=== PATIENT | male | born 1950 | race Caucasian/White ===

== ENCOUNTER 2016-07-19 19:41 | Emergency (ER) | payer OTHER ==
[~2016-07-19] VITALS: Ht 180.3 cm; Wt 88.1 kg
[2016-07-19 19:45] VITALS: TEMP 36.6; Ht 180.3 cm; Wt 88.1 kg
[2016-07-19] MEDS ORDERED: ONDANSETRON INJ 2 MG/ML 2 ML VIAL IV STA (19:55)
[2016-07-19] MEDS ORDERED: SODIUM CHLORIDE 0.9% 1000ML 1,000 ML IV STA (19:55)
--- NOTE | 2016-07-19 19:59 | EMERGENCY ROOM VISIT NOTE ---
History Report prepared by Fany: Franklyn Bishop Under the Supervision of: Barby WhitleyO. First contact with patient: 19:49 Chief Complaint: ABDOMINAL PAIN Stated Complaint: ABDOMINAL PAIN/R SIDE BACK PAIN History of Present Illness The patient is a 66 year old male who presents to the Emergency Room with complaints of persistent lower abdominal pain that began two night prior to arrival. The patient describes his lower abdominal pain as a "burning" and notes that it radiates into his lower back. He also notes that his lower abdominal pain has radiated into the epigastric region as well. The patient denies any recent diarrhea or vomiting. Source of History: patient Onset: 2 nights [employer] Position: abdomen (Lower) Quality: burning Timing: other (Persistent) Associated Symptoms: + back pain (Lower ), No diarrhea, No vomiting Review of Systems See HPI for pertinent positives & negatives. A total of 10 systems reviewed and were otherwise negative. Past Medical & Surgical Medical Problems: (1) Hernia (2) History of kidney cancer Family History Cancer Diabetes mellitus Hypertension Social History Smoking Status: Former Smoker Marital Status: single Housing Status: lives alone Occupation Status: retired Current/Historical Medications Scheduled Lisinopril (Zestril), 2.5 MG PO DAILY Loratadine (Claritin), 10 MG PO DAILY Metformin Hcl (Glucophage), 500 MG PO DAILY Omeprazole (Prilosec), 20 MG PO Q3D Tamsulosin Hcl (Flomax), 0.4 MG PO DAILY Scheduled PRN Fluticasone Propionate (Nasal) (Flonase Allergy Relief), 2 SPRAYS APPLE for Nasal Congestion Oxycodone Immediate Rel Tab (Roxicodone Ir), 1-2 TAB PO Q4H PRN for Severe Pain Allergies Coded Allergies: No Known Allergies (Unverified , 07/19/16) Physical Exam Vital Signs Date Time Temp Pulse Resp B/P Pulse Ox O2 Delivery O2 Flow Rate FiO2 07/19/16 22:58 86 18 139/96 95 07/19/16 22:20 81 07/19/16 21:33 76 18 154/75 98 Room Air 07/19/16 20:11 78 18 169/98 100 Room Air 07/19/16 20:01 84 07/19/16 19:45 36.6 92 16 165/97 99 Room Air Physical Exam GENERAL: Patient is awake, alert, and in no acute distress. Patient is resting comfortably and showing no signs of anxiety EYES: The conjunctivae are clear. The pupils are round and reactive. EARS, NOSE, MOUTH AND THROAT: The nose is without any evidence of any deformity. Mucous membranes are moist tongue is midline NECK: The neck is nontender and supple. RESPIRATORY: Normal respiratory effort is noted there is no evidence of wheezing rhonchi or rales CARDIOVASCULAR: Regular rate and rhythm noted there no murmurs rubs or gallops normal S1 normal S2 GASTROINTESTINAL: The abdomen is distended but soft. Bowel sounds are present in all quadrants. Abdomen is tender to the LUQ and RLQ, no guarding or rigidity. MUSCULOSKELETAL/EXTREMITIES: There is no evidence of gross deformity full range of motion is noted in the hips and shoulders SKIN: There is no obvious evidence of any rash. There are no petechiae, pallor or cyanosis noted. NEUROLOGIC: Patient is awake alert and oriented x3. Medical Decision & Procedures ER Provider Diagnostic Interpretation: Radiology results as stated below per my review and radiologist interpretation: CHEST ONE VIEW PORTABLE HISTORY: Generalized abdominal pain. COMPARISON: None. FINDINGS: The lungs are clear. Cardiac silhouette is normal in size. No pleural effusions. No pneumothorax. IMPRESSION: No acute process. Electronically signed by: Jorge Steiner M.D. 07/19/2016 8:19 PM Dictated Date/Time: 07/19/2016 8:18 PM ABDOMEN AND PELVIS CT WITH IV CONTRAST CT DOSE: 450.00 mGy.cm HISTORY: Lower abdominal pain. TECHNIQUE: Multiaxial CT images of the abdomen and pelvis were performed following the use of intravenous contrast. COMPARISON STUDY: None. FINDINGS: The lung bases are clear. There is a slightly expansile groundglass lesion within the medullary cavity of the proximal right femur best seen on image 86. This measures up to 5 cm in length and 3.4 cm in thickness. 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 The liver, gallbladder, spleen, pancreas, right adrenal gland, and right kidney are unremarkable. There is a 17 mm left adrenal gland nodule. Focal defect within the lower pole of the left kidney. There are 2 similar-appearing hypodense lesions within the left kidney measuring 1.6-1.4 cm. These do not clearly represent simple cysts on this study. No retroperitoneal lymphadenopathy. No hydronephrosis. The prostate gland is enlarged. Normal bladder. Abnormal soft tissue adjacent to the distal left external iliac vessels measuring 1.9 x 1.4 cm best seen on image 68. No bowel wall thickening or obstruction. Colonic diverticulosis. Normal appendix. IMPRESSION: 1. No bowel wall thickening or obstruction. 2. Colonic diverticulosis. 3. An indeterminate 17 mm left adrenal gland nodule. 4. Focal defect within the lower pole of the left kidney which may be due to old postoperative change. 5. There are 2 similar-appearing hypodense lesions within the left kidney. These do not clearly represent simple cysts but favor hyperdense cysts. However, follow-up nonemergent dedicated renal CT or MRI is recommended for further evaluation. 6. A 1.9 x 1.4 cm low-density soft tissue nodule adjacent to the left external iliac vessels. This could represent mesh repair of an inguinal hernia. However, a pathologically enlarged lymph node could also have a similar appearance. Clinical recommended. 7. Enlarged prostate. 8. 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 Electronically signed by: Jorge Steiner M.D. 07/19/2016 9:13 PM Dictated Date/Time: 07/19/2016 9:00 PM Laboratory Results 07/19/16 19:58 Red Blood Count 5.10, Mean Corpuscular Volume 92.5, Mean Corpuscular Hemoglobin 33.1, Mean Corpuscular Hemoglobin Concent 35.8, Mean Platelet Volume 10.4, Neutrophils (%) (Auto) 56.7, Lymphocytes (%) (Auto) 26.0, Monocytes (%) (Auto) 9.0, Eosinophils (%) (Auto) 7.9, Basophils (%) (Auto) 0.1, Neutrophils # (Auto) 3.97, Lymphocytes # (Auto) 1.82, Monocytes # (Auto) 0.63, Eosinophils # (Auto) 0.55, Basophils # (Auto) 0.01 07/19/16 19:58 Test 07/19/16 19:58 07/19/16 20:03 07/19/16 20:20 07/19/16 20:30 White Blood Count 7.00 K/uL (4.8-10.8) Red Blood Count 5.10 M/uL (4.7-6.1) Hemoglobin 16.9 g/dL (14.0-18.0) Hematocrit 47.2 % (42-52) Mean Corpuscular Volume 92.5 fL (80-100) Mean Corpuscular Hemoglobin 33.1 pg (25-34) Mean Corpuscular Hemoglobin Concent 35.8 g/dl (32-36) Platelet Count 168 K/uL (130-400) Mean Platelet Volume 10.4 fL (7.4-10.4) Neutrophils (%) (Auto) 56.7 % Lymphocytes (%) (Auto) 26.0 % Monocytes (%) (Auto) 9.0 % Eosinophils (%) (Auto) 7.9 % Basophils (%) (Auto) 0.1 % Neutrophils # (Auto) 3.97 K/uL (1.4-6.5) Lymphocytes # (Auto) 1.82 K/uL (1.2-3.4) Monocytes # (Auto) 0.63 K/uL (0.11-0.59) Eosinophils # (Auto) 0.55 K/uL (0-0.5) Basophils # (Auto) 0.01 K/uL (0-0.2) RDW Standard Deviation 41.5 fL (36.4-46.3) RDW Coefficient of Variation 12.3 % (11.5-14.5) Immature Granulocyte % (Auto) 0.3 % Immature Granulocyte # (Auto) 0.02 K/uL (0.00-0.02) Prothrombin Time 11.3 SECONDS (9.0-12.0) Prothromb Time International Ratio 1.1 (0.9-1.1) Activated Partial Thromboplast Time 26.3 SECONDS (21.0-31.0) Partial Thromboplastin Ratio 1.0 Est Creatinine Clear Calc Drug Dose 84.5 ml/min Estimated GFR () 98.9 Estimated GFR (Non- 85.3 BUN/Creatinine Ratio 14.3 (10-20) Calcium Level 8.7 mg/dl (8.5-10.1) Total Bilirubin 0.9 mg/dl (0.2-1) Direct Bilirubin 0.2 mg/dl (0-0.2) Aspartate Amino Transf (AST/SGOT) 15 U/L (15-37) Alanine Aminotransferase (ALT/SGPT) 29 U/L (12-78) Alkaline Phosphatase 87 U/L (45-117) Total Creatine Kinase 56 U/L (39-308) Creatine Kinase MB < 0.5 ng/ml (0.5-3.6) Creatine Kinase MB Ratio (0-3.0) Troponin I < 0.015 ng/ml (0-0.045) Total Protein 7.8 gm/dl (6.4-8.2) Albumin 4.2 gm/dl (3.4-5.0) Lipase 182 U/L (73-393) Bedside Hemoglobin 16.7 g/dl (14.0-18.0) Bedside Hematocrit 49 % (42-52) Bedside Sodium 140 mEq/L (135-144) Bedside Potassium 3.7 mEq/L (3.3-5.0) Bedside Chloride 98 mEq/L (101-112) Bedside Total CO2 27 mEq/l (24-31) Anion Gap 20.0 mmol/L (16-25) Bedside Blood Urea Nitrogen 14 mg/dl (7-18) Bedside Creatinine 0.9 mg/dl (0.6-1.3) Bedside Glucose (other) 114 mg/dl (70-99) Bedside Ionized Calcium ([place]) 1.10 mmol/l (1.12-1.32) Urine Color YELLOW Urine Appearance CLEAR (CLEAR) Urine pH 6.5 (4.5-7.5) Urine Specific [place] 1.006 (1.000-1.030) Urine Protein NEG (NEG) Urine Glucose (UA) NEG (NEG) Urine Ketones TRACE (NEG) Urine Occult Blood NEG (NEG) Urine Nitrite NEG (NEG) Urine Bilirubin NEG (NEG) Urine Urobilinogen NEG (NEG) Urine Leukocyte Esterase NEG (NEG) Bedside Lactic Acid Venous 1.04 mmol/L (0.90-1.70) Laboratory results per my review. Medications Administered Medications (Trade) Dose Ordered Sig/Radha Route Start Time Stop Time Status Last Admin Dose Admin Sodium Chloride (Nss 1000ml) 1,000 ml @ 999 mls/hr Q1H1M STAT IV 07/19/16 19:55 07/19/16 20:55 DC 07/19/16 19:59 999 MLS/HR Morphine Sulfate (MoRPHine SULFATE INJ) 4 mg Q15M PRN IV 07/19/16 20:00 07/19/16 23:52 DC 07/19/16 20:13 4 MG Ondansetron HCl (Zofran Inj) 4 mg NOW STAT IV 07/19/16 19:55 07/19/16 19:57 DC 07/19/16 20:13 4 MG Ondansetron HCl (ZOFRAN ODT 4MG Home Pack) 1 homepack UD ONCE PO 07/19/16 22:15 07/19/16 22:16 DC 07/19/16 22:35 1 HOMEPACK Oxycodone HCl (Roxicodone Immediate Rel 5MG Home Pack) 1 homepack UD ONCE PO 07/19/16 22:15 07/19/16 22:16 DC 07/19/16 22:35 1 HOMEPACK Tamsulosin HCl (Flomax Cap) 0.4 mg NOW ONCE PO 07/19/16 22:15 07/19/16 22:16 DC 07/19/16 22:35 0.4 MG ECG Indication: abdominal pain Rate (beats per minute): 79 Findings: no acute ischemic change, no ectopy Comparison ECG Date: no prior available ED Course 1949: The patient was evaluated in room B2. A complete history and physical examination were performed. 1954: Ordered Zofran 4 mg IV, Sodium Chloride 1000 mL @ 999 mL/hr IV. 1999: Ordered Morphine Sulfate 4 mg IV. 2214: Ordered Flomax 0.4 mg PO, Oxycodone HCl 1 homepack PO, Zofran 1 homepack PO. 2228: Upon reevaluation, the patient is resting in bed. I discussed the results and treatment plan with him. He verbalized agreement of the treatment plan. The patient was discharged home. Medical Decision The patient's history was concerning for abdominal pain. Differential diagnosis: Etiologies such as appendicitis, diverticulitis, PUD, biliary pathology, UTI, pancreatitis, obstruction, mesenteric ischemia, aortic pathology, infections, inflammatory bowel disease, renal colic, as well as others were entertained. The patient is a 66-year-old male who has a history of renal cancer in the past presented to the emergency department for evaluation of abdominal pain. The patient's physical exam was not consistent with an acute surgical abdomen but he did have very significant tenderness and given his past medical history CAT scan the abdomen and pelvis was obtained. He is also scheduled for a CT the abdomen and pelvis this week with his primary oncology group. The patient treated with IV fluids IV pain medicine and IV antiemetics. On subsequent reevaluation he was feeling much better. I discussed the patient's laboratory and radiographic studies with him. I read the CT report to him directly and he was given a copy of his CT report. Most of these findings are likely not new but I asked him to have this CAT scan compared to his previous CAT scans with his primary oncology group. He was encouraged to drink plenty clear liquids and rest. He was also encouraged to call his primary care physician in the morning to schedule a follow-up appointment. Otherwise she was encouraged to return to the emergency department immediately if symptoms change worsen or the need arises. Impression Primary Impression: Right lower quadrant abdominal pain Scribe Attestation The scribe's documentation has been prepared under my direction and personally reviewed by me in its entirety. I confirm that the note above accurately reflects all work, treatment, procedures, and medical decision making performed by me. Departure Information Dispostion Home / Self-Care Prescriptions Tamsulosin Hcl (FLOMAX) 0.4 Mg Cap 0.4 MG PO DAILY, #30 CAP Prov: Hadley Ferrell, DO 07/19/16 Oxycodone Immediate Rel Tab (ROXICODONE IR) 5 Mg Tab 1-2 TAB PO Q4H Y for Severe Pain, #24 TAB Prov: Hadley Ferrell, 07/19/16 Referrals Shiv Lopes MD (PCP) Forms HOME CARE DOCUMENTATION FORM, IMPORTANT VISIT INFORMATION Patient Instructions My [facility] Additional Instructions Family to schedule a follow-up appointment. Continue all medications as prescribed. Follow-up with your primary cancer doctor this week for reevaluation. Return to the emergency department immediately if symptoms change worsen or the need arises.
[2016-07-19] MEDS ORDERED: MoRPHine SULFATE 4 MG/ML 1 ML CARP\\VIAL IV PRN (20:00)
[2016-07-19 20:12] LABS: BASO % 0.1 %; BASO ABS # 0.01 K/uL (0-0.2); COMPLETE YES; EOS % 7.9 %; HEMATOCRIT 47.2 % (42-52); IG% 0.3 %; LYMPH ABS # 1.82 K/uL (1.2-3.4); MEAN CELL VOLUME 92.5 fL (80-100); MEAN CORPUSCULAR HEMOGLOBIN 33.1 pg (25-34); MEAN CORPUSCULAR HGB CONC 35.8 g/dl (32-36); MEAN PLATELET VOLUME 10.4 fL (7.4-10.4); NEUT % 56.7 %; PLATELET COUNT 168 K/uL (130-400)
[2016-07-19] MEDS ORDERED: OPTIRAY 320 IV PRN (20:15)
--- NOTE | 2016-07-19 20:20 | DIAGNOSTIC IMAGING REPORT ---
CHEST ONE VIEW PORTABLE HISTORY: Generalized abdominal pain. COMPARISON: None. FINDINGS: The lungs are clear. Cardiac silhouette is normal in size. No pleural effusions. No pneumothorax. IMPRESSION: No acute process. Electronically signed by: Jorge Steiner M.D. 07/19/2016 8:19 PM Dictated Date/Time: 07/19/2016 8:18 PM
[2016-07-19 20:29] LABS: ALT/SGPT 29 U/L (12-78); AST/SGOT 15 U/L (15-37); BLOOD UREA NITROGEN 13 mg/dl (7-18); BUN/CREATININE RATIO 14.3 (10-20); CALCIUM 8.7 mg/dl (8.5-10.1); CARBON DIOXIDE 30 mmol/L (21-32); CHLORIDE 102 mmol/L (98-107); CREATININE 0.94 mg/dl (0.60-1.40); GLUCOSE 110 mg/dl (70-99); POTASSIUM 3.7 mmol/L (3.5-5.1); SODIUM 138 mmol/L (136-145)
[2016-07-19] MEDS ORDERED: PRLSR20 PO (20:34)
[2016-07-19] MEDS ORDERED: LISI-729 PO (20:34)
[2016-07-19] MEDS ORDERED: GLC/500 PO (20:34)
[2016-07-19] MEDS ORDERED: CLR10 PO (20:34)
[2016-07-19] MEDS ORDERED: FLUT0.15 NAE (20:35)
[2016-07-19 20:37] LABS: ALKALINE PHOSPHATASE 87 U/L (45-117)
[2016-07-19 20:45] LABS: ISTAT CREATININE 0.9 mg/dl (0.6-1.3); ISTAT HEMOGLOBIN 16.7 g/dl (14.0-18.0); ISTAT IONIZED CALCIUM 1.1 mmol/l (1.12-1.32)
[2016-07-19 20:47] LABS: URINE APPEARANCE CLEAR (CLEAR); URINE BILIRUBIN NEG (NEG); URINE COLOR YELLOW; URINE NITRITE NEG (NEG); URINE PH 6.5 (4.5-7.5); URINE SPECIFIC GRAVITY 1.006 (1.000-1.030); UROBILINOGEN NEG (NEG)
[2016-07-19 20:54] LABS: MANUAL MICROSCOPIC REQUIRED? NO; REVIEW REQ? NO
[2016-07-19 21:02] LABS: INR 1.1 (0.9-1.1); PROTHROMBIN TIME (PATIENT) 11.3 SECONDS (9.0-12.0)
--- NOTE | 2016-07-19 21:14 | DIAGNOSTIC IMAGING REPORT ---
ABDOMEN AND PELVIS CT WITH IV CONTRAST CT DOSE: 450.00 mGy.cm HISTORY: Lower abdominal pain. TECHNIQUE: Multiaxial CT images of the abdomen and pelvis were performed following the use of intravenous contrast. COMPARISON STUDY: None. FINDINGS: The lung bases are clear. There is a slightly expansile groundglass lesion within the medullary cavity of the proximal right femur best seen on image 86. This measures up to 5 cm in length and 3.4 cm in thickness. 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 The liver, gallbladder, spleen, pancreas, right adrenal gland, and right kidney are unremarkable. There is a 17 mm left adrenal gland nodule. Focal defect within the lower pole of the left kidney. There are 2 similar-appearing hypodense lesions within the left kidney measuring 1.6-1.4 cm. These do not clearly represent simple cysts on this study. No retroperitoneal lymphadenopathy. No hydronephrosis. The prostate gland is enlarged. Normal bladder. Abnormal soft tissue adjacent to the distal left external iliac vessels measuring 1.9 x 1.4 cm best seen on image 68. No bowel wall thickening or obstruction. Colonic diverticulosis. Normal appendix. IMPRESSION: 1. No bowel wall thickening or obstruction. 2. Colonic diverticulosis. 3. An indeterminate 17 mm left adrenal gland nodule. 4. Focal defect within the lower pole of the left kidney which may be due to old postoperative change. 5. There are 2 similar-appearing hypodense lesions within the left kidney. These do not clearly represent simple cysts but favor hyperdense cysts. However, follow-up nonemergent dedicated renal CT or MRI is recommended for further evaluation. 6. A 1.9 x 1.4 cm low-density soft tissue nodule adjacent to the left external iliac vessels. This could represent mesh repair of an inguinal hernia. However, a pathologically enlarged lymph node could also have a similar appearance. Clinical recommended. 7. Enlarged prostate. 8. 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 Electronically signed by: Jorge Steiner M.D. 07/19/2016 9:13 PM Dictated Date/Time: 07/19/2016 9:00 PM
[2016-07-19] MEDS ORDERED: ONDANSETRON HOME PACK 4MG OD TAB PO ONE (22:15)
[2016-07-19] MEDS ORDERED: TAMSULOSIN HCL 0.4 MG CAP PO ONE (22:15)
[2016-07-19] MEDS ORDERED: OXYCODONE IR HOME PACK PO ONE (22:15)
[2016-07-19] MEDS ORDERED: OXYC1TAB3 PO (22:30)
[2016-07-19] MEDS ORDERED: TAMS0.4C38 PO (22:35)
[2016-07-19 22:58] VITALS: BP 139/96; PULSE 86; O2SAT 95
== END 2016-07-19 23:00 | disposition home or self-care (01) ==
LOC: C.EDB 19:43
DX: R10.31 Right lower quadrant pain (principal); M54.9 Dorsalgia, unspecified; Z85.528 Personal history of other malignant neoplasm of kidney; Z87.891 Personal history of nicotine dependence; Z79.84 Long term (current) use of oral hypoglycemic drugs; Z83.3 Family history of diabetes mellitus; Z82.49 Family history of ischemic heart disease and other diseases of the circulatory system

== ENCOUNTER 2023-08-18 16:34 | Observation (INO) ==
[2023-08-18 17:31] LABS: Basophils # (auto) 0.04 K/uL (0.00-0.20); Basophils % (auto) 0.6 %; Eosinophils # (auto) 0.36 K/uL (0.00-0.50); Eosinophils % (auto) 5.6 %; Hematocrit (blood only) 42.9 % (42.0-52.0); Hemoglobin 14.8 g/dl (14.0-18.0); Immature Granulocytes # (auto) 0.02 K/uL (0.01-0.20); Immature Granulocytes % (auto) 0.3 %; Lymphocytes # (auto) 1.12 K/uL (1.20-3.40); Lymphocytes % (auto) 17.5 %; Mean Corpuscular Hemoglobin 31.6 pg (25.0-34.0); Mean Corpuscular Hgb Conc 34.5 g/dL (32.0-36.0); Mean Corpuscular Volume 91.7 fL (80.0-100.0); Mean Platelet Volume 10.2 fL (9.4-12.4); Monocytes # (auto) 0.37 K/uL (0.11-0.59); Monocytes % (auto) 5.8 %; Neutrophils % (auto) 70.2 %; Platelet Count 151 K/uL (130-400); RDW Coefficient of Variation 12.2 % (11.5-14.5); RDW Standard Deviation 41.2 fL (36.4-46.3); Red Blood Count 4.68 M/uL (4.70-6.10); White Blood Count 6.41 K/ul (4.8-10.8)
[2023-08-18 17:47] LABS: Albumin Globulin Ratio 1.6 (0.9-2); Albumin Level 4.4 gm/dl (3.4-5.0); BUN Creatinine Ratio 19.1 (10-20); Bilirubin,Total 0.8 mg/dl (0.2-1.0); Calcium 9.2 mg/dl (8.6-10.3); Creatinine Clr Calc Pharmacy 76.8 ml/min; Est GFR (African American) 94.2 ml/min; Est GFR (Non-African American) 81.2 ml/min; Globulin 2.7 gm/dl (2.5-4.0); Magnesium 2.1 mg/dl (1.7-2.4); Potassium 3.9 mmol/L (3.5-5.1); Total Protein 7.1 gm/dl (6.0-8.3)
--- NOTE | 2023-08-18 17:47 | Emergency Department Note ---
Impression & Plan Stroke-like symptoms ED Provider Note NAME: BARRIE NESBITT AGE: 73 SEX: M : 1950 ARRIVES VIA: Walk-In INFORMANT: Patient, ED PROVIDER(S): Tamara Rodriguez MD CHIEF COMPLAINT: Concern for TIA HPI: This is a 73-year-old male presenting for concern for TIA. Patient states that he had an episode lasted between 2 and 5 minutes at around 12:45 PM today where he began feeling headache his left eye was blurred, "dizzy "sensation in his eyeball only. He does not feel vertiginous. He notes he had no vision loss. He notes his eyeball felt like it was not working "rotating ". He does not use any blood thinners. No fevers, chills, nausea or vomiting. This never happened before. He saw his inbound customer service agent who did a full eye exam and found no acute abnormalities. She states that he should come to the ER for TIA rule out based on his symptoms. ROS: See above HPI for pertinent positives & negatives. A total of 10 systems reviewed and were otherwise negative. PHYSICAL EXAMINATION: General: resting comfortably in no acute distress Head: Normocephalic and atraumatic Eyes: Normal inspection, extraocular muscles intact Ear, nose, throat: Normal external exam Neck: Normal range of motion Respiratory: lungs clear to auscultation bilaterally Cardiovascular: Regular rate/rhythm, no murmur GI: soft, nontender, no guarding or rebound Extremities: nontender, moves all extremities Neuro: The patient awake and alert, appropriately conversive, no focal deficits, symmetric faces, cranial nerves II through XII intact, no motor dysfunction, no dysmetria, gross vision intact Skin: Warm, dry, and intact MEDICAL DECISION MAKING: This is a 73-year-old male presenting for blurred vision. Patient had episodes of blurry vision for about 2 to 5 minutes. Notes complete resolution of symptoms. Had his eyes inspected and sent here for further TIA rule out. He has no chest pain, fever, chills, nausea or vomiting. Will do CTs of the head as well as blood work. -Blood work is reviewed showing no severe abnormalities. INR within normal limits. There is no significant electrolyte disturbances. Troponin negative. -CT of the head/neck are both negative -Patient has no current symptoms, however due to suspicion of TIA based on outpatient referral, will admit for further evaluation. Differential diagnosis: Stroke, TIA, retinal attachment, vitreous detachment, vitreous hemorrhage, vertigo ER treatment provided: See below Diagnostics interpreted by me: ECG: None Cardiac Monitoring: An order was placed for continuous cardiac monitoring. The monitor shows a rate of 80 with sinus rhythm. Laboratory studies: As stated above and show below. Imaging studies: See below. Past Med/Surg History Problem List (Updated 08/18/23 @ 22:16 by Tamara Rodriguez MD) Stroke-like symptoms (Acute) Benign localized prostatic hyperplasia with lower urinary tract symptoms (LUTS) Renal cell carcinoma Encounter for pre-operative examination Medical History Arthritis BPH (benign prostatic hyperplasia) Diabetes mellitus, type 2 GERD (gastroesophageal reflux disease) History of kidney cancer SURGERY ONLY Hyperlipidemia Hypertension Ocular migraine Seasonal asthma HAS NOT USED INHALER RECENLTY Surgical History H/O foot surgery RT X 2 H/O partial nephrectomy LAP H/O wisdom tooth extraction History of hernia surgery X 3 History of right cataract extraction Family History Other No family history of adverse response to anesthesia Social History Smoking Status: Never smoker Second Hand Exposure: Yes (in the past--work exposure); Do You Dip or Chew Tobacco: No; Hx Alcohol Use: Yes Alcohol type: hard liquor Hx Substance Use: No Preferred Language: Maori Communication Ability: Effective Children'S Tutor Required: No Beliefs That Will Affect Care: None Current Living Situation: Alone Feels Safe at Home: Yes Assistive Devices: Contacts and Glasses Allergies Allergies Allergy/AdvReac Type Severity Reaction Status Date / Time house dust AdvReac Mild sinusitis, Verified 04/27/23 11:49 sob pollen extracts AdvReac Mild sinusitis, Verified 04/27/23 11:49 sob Home Meds Home Medications Medication Instructions Recorded Confirmed atorvastatin 10 mg tablet 10 mg PO HS 06/18/20 04/27/23 calcium carb 333 mg-vit D3 133 2 tab PO DAILY 06/18/20 04/27/23 unit-mag ox 133 mg-zinc oxide 5 mg tab (Bandar Mag Zinc Plus D3) cyanocobalamin (vitamin B-12) 1,000 mcg PO DAILY 06/18/20 04/27/23 1,000 mcg tablet (Vitamin B-12) fluticasone propionate 110 2 puff inhalation BID PRN 06/18/20 12/31/21 mcg/actuation HFA aerosol inhaler Shortness Of Breath Or Wheezing (Flovent HFA) metformin 500 mg tablet,extended 1,000 mg PO QPM 06/18/20 04/27/23 release 24 hr omeprazole 20 mg capsule,delayed 20 mg PO Q2D 06/18/20 04/27/23 release lisinopril 5 mg tablet 5 mg PO QPM 11/14/21 04/27/23 loratadine 10 mg tablet (Claritin) 10 mg PO DAILY PRN ALLERGY RELIEF 11/14/21 04/27/23 Previous Rx's Medication Instructions Recorded alfuzosin 10 mg tablet,extended 10 mg PO DAILY #90 tabs 05/06/23 release 24 hr finasteride 5 mg tablet 5 mg PO DAILY #30 tabs 06/22/23 sulfamethoxazole 800 1 tab PO BID 10 days #20 tabs 06/28/23 mg-trimethoprim 160 mg tablet (Bactrim DS) Results & Data (ED) Vital Signs Vital Signs - 24 hr 08/18/23 16:39 08/18/23 16:52 08/18/23 16:53 Temperature 36.5 C Temperature Source Temporal Artery Scan Pulse Rate 83 79 Pulse Rate [Apical] 80 Respiratory Rate 19 17 Respiratory Effort / Characteristics Respiratory Depth Blood Pressure 147/82 H Blood Pressure [Right Arm] 157/86 H Blood Pressure Mean 103 Blood Pressure Mean [Right Arm] 109 Pulse Oximetry 97 99 Oxygen Delivery Method Room Air Sepsis Recent Fever Within 48 Hours No Sepsis New/Unexplained Change in Mental Status N/A Sepsis Action Taken by Nursing No Action Required 08/18/23 17:12 08/18/23 17:43 08/18/23 17:51 Temperature Temperature Source Pulse Rate 91 H 77 Pulse Rate [Apical] 79 Respiratory Rate 22 21 18 Respiratory Effort / Characteristics Non-Labored Spontaneous Respiratory Depth Normal Blood Pressure Blood Pressure [Right Arm] 154/83 H Blood Pressure Mean Blood Pressure Mean [Right Arm] 106 Pulse Oximetry 97 97 98 Oxygen Delivery Method Room Air Room Air Room Air Sepsis Recent Fever Within 48 Hours Sepsis New/Unexplained Change in Mental Status Sepsis Action Taken by Nursing 08/18/23 19:07 Temperature Temperature Source Pulse Rate Pulse Rate [Apical] 80 Respiratory Rate Respiratory Effort / Characteristics Respiratory Depth Blood Pressure Blood Pressure [Right Arm] 152/86 H Blood Pressure Mean Blood Pressure Mean [Right Arm] 108 Pulse Oximetry 99 Oxygen Delivery Method Room Air Sepsis Recent Fever Within 48 Hours Sepsis New/Unexplained Change in Mental Status Sepsis Action Taken by Nursing Laboratory Data 08/18/23 16:58 08/18/23 16:58 Lab Results 08/18/23 Range/Units 16:58 WBC 6.41 (4.8-10.8) K/ul RBC 4.68 L (4.70-6.10) M/uL Hgb 14.8 (14.0-18.0) g/dl Hct 42.9 (42.0-52.0) % MCV 91.7 (80.0-100.0) fL MCH 31.6 (25.0-34.0) pg MCHC 34.5 (32.0-36.0) g/dL RDW Std Deviation 41.2 (36.4-46.3) fL RDW Coeff of Lauren 12.2 (11.5-14.5) % Plt Count 151 (130-400) K/uL MPV 10.2 (9.4-12.4) fL Immature Gran % (Auto) 0.3 % Neut % (Auto) 70.2 % Lymph % (Auto) 17.5 % [place] % (Auto) 5.8 % Eos % (Auto) 5.6 % Baso % (Auto) 0.6 % Neut # (Auto) 4.50 (1.40-6.50) K/uL Lymph # (Auto) 1.12 L (1.20-3.40) K/uL [place] # (Auto) 0.37 (0.11-0.59) K/uL Eos # (Auto) 0.36 (0.00-0.50) K/uL Baso # (Auto) 0.04 (0.00-0.20) K/uL Immature Gran # (Auto) 0.02 (0.01-0.20) K/uL PT 11.1 (9.0-12.0) Seconds INR 1.0 (0.9-1.1) APTT 26 (21-31) Seconds PTT Ratio 1.0 Sodium 139 (136-145) mmol/L Potassium 3.9 (3.5-5.1) mmol/L Chloride 104 (98-107) mmol/L Carbon Dioxide 30 (21-32) mmol/L Anion Gap 5 (3-11) BUN 18 (6-23) mg/dl Creatinine 0.94 (0.6-1.4) mg/dl Est Cr Clr Drug Dosing 76.8 ml/min Est GFR ( Amer) 94.2 ml/min Est GFR (Non-Af Amer) 81.2 ml/min BUN/Creatinine Ratio 19.1 (10-20) Glucose 153 H (70-99(Fasting)) mg/dl Calcium 9.2 (8.6-10.3) mg/dl Magnesium 2.1 (1.7-2.4) mg/dl Total Bilirubin 0.8 (0.2-1.0) mg/dl AST 16 (13-39) U/L ALT 15 (7-52) U/L Alkaline Phosphatase 67 (34-104) U/L Troponin I High Sens 3.5 (0-20) pg/ml Total Protein 7.1 (6.0-8.3) gm/dl Albumin 4.4 (3.4-5.0) gm/dl Globulin 2.7 (2.5-4.0) gm/dl Albumin/Globulin Ratio 1.6 (0.9-2) Administered Medications Discontinued Medications Aspirin (Aspirin Chew 324 Mg) 324 mg PO NOW STA Stop: 08/18/23 20:41 Last Admin: 08/18/23 20:46 Dose: 324 mg Documented By: ZOLTAN Ioversol (Optiray 320 125ml) 119 ml IV ONCE ONE Stop: 08/18/23 18:31 Last Admin: 08/18/23 18:30 Dose: 119 ml Documented By: NICA Imaging Data Radiologist's Impression: Head CT 08/18/23 17:14 CT angio neck with con, CT angio head w con, CT head/brain wo con CLINICAL HISTORY: neuro deficit, TIA suspected TECHNIQUE: Contiguous axial CT images of the head were acquired from the base of the skull to the vertex without intravenous contrast administration. CT angiography of the head and neck was performed following intravenous administration of iodinated contrast. Coronal and sagittal MIPS were obtained from the axial data set and were submitted for review. Automated dose lowering techniques and/or adjustment according to patient size were utilized for this examination. All measurements were calculated based on NASCET criteria. CT DOSE: 1113.69 mGy.cm Comparison: None available at the time of this dictation. FINDINGS: CT head: There is no acute intracranial hemorrhage or evidence of acute territorial infarction. No shift of the midline structures, mass effect, or extra-axial abnormalities are shown. Lungs and soft tissues are unremarkable. CTA Neck: The left common carotid artery shares common origin with the innominate artery. There is no significant atherosclerotic plaque in the aortic arch or the origins of the innominate, left common carotid, and left subclavian arteries. There is mild calcified atherosclerotic plaque at the bifurcation of the bilateral common carotid arteries without hemodynamically significant flow stenosis. There is no dissection present. The left vertebral artery is dominant. CTA Head: The anterior and posterior cerebral circulations are patent. No hemodynamically significant stenosis, aneurysm, dissection, or arteriovenous malformation is shown. IMPRESSION: 1. No acute intracranial hemorrhage, evidence of acute territorial infarction, or other acute intracranial disease process. 2. No occlusion, hemodynamically significant stenosis, or dissection in the major cervical arteries. 3. No occlusion, hemodynamically significant stenosis, aneurysm, dissection, or arteriovenous malformation in the major intracranial arteries. Assessment of stenosis of the internal carotid arteries is based on NASCET criteria. ACT 112: Negative or not required by law. Electronically signed by: Pierce Katz M.D. 08/18/2023 6:53 PM Head CTA 08/18/23 17:14 CT angio neck with con, CT angio head w con, CT head/brain wo con CLINICAL HISTORY: neuro deficit, TIA suspected TECHNIQUE: Contiguous axial CT images of the head were acquired from the base of the skull to the vertex without intravenous contrast administration. CT angiography of the head and neck was performed following intravenous administration of iodinated contrast. Coronal and sagittal MIPS were obtained from the axial data set and were submitted for review. Automated dose lowering techniques and/or adjustment according to patient size were utilized for this examination. All measurements were calculated based on NASCET criteria. CT DOSE: 1113.69 mGy.cm Comparison: None available at the time of this dictation. FINDINGS: CT head: There is no acute intracranial hemorrhage or evidence of acute territorial infarction. No shift of the midline structures, mass effect, or extra-axial abnormalities are shown. Lungs and soft tissues are unremarkable. CTA Neck: The left common carotid artery shares common origin with the innominate artery. There is no significant atherosclerotic plaque in the aortic arch or the origins of the innominate, left common carotid, and left subclavian arteries. There is mild calcified atherosclerotic plaque at the bifurcation of the bilateral common carotid arteries without hemodynamically significant flow stenosis. There is no dissection present. The left vertebral artery is dominant. CTA Head: The anterior and posterior cerebral circulations are patent. No hemodynamically significant stenosis, aneurysm, dissection, or arteriovenous malformation is shown. IMPRESSION: 1. No acute intracranial hemorrhage, evidence of acute territorial infarction, or other acute intracranial disease process. 2. No occlusion, hemodynamically significant stenosis, or dissection in the major cervical arteries. 3. No occlusion, hemodynamically significant stenosis, aneurysm, dissection, or arteriovenous malformation in the major intracranial arteries. Assessment of stenosis of the internal carotid arteries is based on NASCET criteria. ACT 112: Negative or not required by law. Electronically signed by: Pierce Katz M.D. 08/18/2023 6:53 PM Neck CTA 08/18/23 17:14 CT angio neck with con, CT angio head w con, CT head/brain wo con CLINICAL HISTORY: neuro deficit, TIA suspected TECHNIQUE: Contiguous axial CT images of the head were acquired from the base of the skull to the vertex without intravenous contrast administration. CT angiography of the head and neck was performed following intravenous administration of iodinated contrast. Coronal and sagittal MIPS were obtained from the axial data set and were submitted for review. Automated dose lowering techniques and/or adjustment according to patient size were utilized for this examination. All measurements were calculated based on NASCET criteria. CT DOSE: 1113.69 mGy.cm Comparison: None available at the time of this dictation. FINDINGS: CT head: There is no acute intracranial hemorrhage or evidence of acute territorial infarction. No shift of the midline structures, mass effect, or extra-axial abnormalities are shown. Lungs and soft tissues are unremarkable. CTA Neck: The left common carotid artery shares common origin with the innominate artery. There is no significant atherosclerotic plaque in the aortic arch or the origins of the innominate, left common carotid, and left subclavian arteries. There is mild calcified atherosclerotic plaque at the bifurcation of the bilateral common carotid arteries without hemodynamically significant flow stenosis. There is no dissection present. The left vertebral artery is dominant. CTA Head: The anterior and posterior cerebral circulations are patent. No hemodynamically significant stenosis, aneurysm, dissection, or arteriovenous malformation is shown. IMPRESSION: 1. No acute intracranial hemorrhage, evidence of acute territorial infarction, or other acute intracranial disease process. 2. No occlusion, hemodynamically significant stenosis, or dissection in the major cervical arteries. 3. No occlusion, hemodynamically significant stenosis, aneurysm, dissection, or arteriovenous malformation in the major intracranial arteries. Assessment of stenosis of the internal carotid arteries is based on NASCET criteria. ACT 112: Negative or not required by law. Electronically signed by: Pierce Katz M.D. 08/18/2023 6:53 PM Brain MRI 08/18/23 20:12 MR brain wo con CLINICAL HISTORY: stroke like symptoms TECHNIQUE: Multiplanar and multisequence MR images of the brain were obtained without intravenous contrast. Comparison: Comparison is made to CTA head and neck 08/18/2023 FINDINGS: No abnormal restricted diffusion is identified. Foci of T2 and FLAIR hyperintensity are noted in the paraventricular areas consistent with chronic small vessel ischemic disease. The ventricular system is normal in appearance. No mass is seen. There is no mass effect or midline shift. There is no evidence of acute intraparenchymal hemorrhage. No extra axial fluid collections are seen. The corpus callosum, pituitary gland, and cerebellar tonsils appear grossly unremarkable. Flow voids of the major intracranial arterial vessels are identified. The imaged portions of the paranasal sinuses, mastoid air cells, and orbits are unremarkable. IMPRESSION: No acute abnormality and in particular no evidence of acute infarct. ACT 112: Negative or not required by law. Electronically signed by: Pierce Katz M.D. 08/18/2023 9:21 PM Discharge Plan Visit Data Chief Complaint: Referred by Doctor Stated Complaint: STROKE IN LT EYE ED Provider: Tamara Rodriguez Discharge Problem: Stroke-like symptoms Patient Disposition: Admitted As Inpatient Discharge Instructions Interventions: ED Discharge Assessment Last Done: 08/18/23 21:04
[2023-08-18 17:53] LABS: Troponin I High Sensitivity 3.5 pg/ml (0-20)
[2023-08-18 17:57] LABS: Partial Thromboplastin Time 26 Seconds (21-31); Prothrombin Time 11.1 Seconds (9.0-12.0)
[2023-08-18] MEDS: OPTIRAY 320 125ml IV ONE (18:30)
--- NOTE | 2023-08-18 18:55 | CT Scan Report ---
CT angio neck with con, CT angio head w con, CT head/brain wo con CLINICAL HISTORY: neuro deficit, TIA suspected TECHNIQUE: Contiguous axial CT images of the head were acquired from the base of the skull to the [place] without intravenous contrast administration. CT angiography of the head and neck was performed f ollowing intravenous administration of iodinated contrast. Coronal and sagittal MIPS were obtained fr om the axial data set and were submitted for review. Automated dose lowering techniques and/or adjus tment according to patient size were utilized for this examination. All measurements were calculated based on NASCET criteria. CT DOSE: 1113.69 mGy.cm Comparison: None available at the time of this dictation. FINDINGS: CT head: There is no acute intracranial hemorrhage or evidence of acute territorial infarction. No sh ift of the midline structures, mass effect, or extra-axial abnormalities are shown. Lungs and soft tissues are unremarkable. CTA Neck: The left common carotid artery shares common origin with the innominate artery. There is n o significant atherosclerotic plaque in the aortic arch or the origins of the innominate, left common carotid, and left subclavian arteries. There is mild calcified atherosclerotic plaque at the bifurc ation of the bilateral common carotid arteries without hemodynamically significant flow stenosis. The re is no dissection present. The left vertebral artery is dominant. CTA Head: The anterior and posterior cerebral circulations are patent. No hemodynamically significan t stenosis, aneurysm, dissection, or arteriovenous malformation is shown. IMPRESSION: 1. No acute intracranial hemorrhage, evidence of acute territorial infarction, or other acute intrac ranial disease process. 2. No occlusion, hemodynamically significant stenosis, or dissection in the major cervical arteries. 3. No occlusion, hemodynamically significant stenosis, aneurysm, dissection, or arteriovenous malfor mation in the major intracranial arteries. Assessment of stenosis of the internal carotid arteries is based on NASCET criteria. ACT 112: Negative or not required by law. Electronically signed by: Pierce Katz M.D. 08/18/2023 6:53 PM
--- NOTE | 2023-08-18 19:37 | History & Physical Report ---
Date of Service August 18, 2023 Assessment & Plan (1) Stroke-like symptoms: Plan: Patient presented with transient stroke like symptoms. CTA Head and Neck without significant stenosis or signs of acute ischemic changes. MRI Brain and ECHO ordered. Patient was not aspirin loaded in the ED. Ordered 324 mg PO stat. AM HbA1c and lipids ordered. Patient on metformin 1000 mg XR nightly and 10 mg atorvastatin. Reportedly had low LDL in the past. Last HbA1c reportedly < 7. Continue statin and metformin. Hold lisinopril to allow for permissive hypertension for about 48 hours. Restart on discharge. f/u MRI - no acute infarct f/u ECHO AM labs - lipids, HbA1c AM ASA 81 mg (2) Benign localized prostatic hyperplasia with lower urinary tract symptoms (LUTS): Plan: No acute urinary retention. Continue home alfuzosin 10 mg XR. (3) Diabetes mellitus, type 2: Plan: Continue home metformin (4) Hyperlipidemia: Plan: Continue home statin (5) Hypertension: Plan: Hold lisinopril as above. Plan Code status: full DVT ppx: SCDs, ambulation, ASA load FENGI: Heart Healthy Dispo: Tele unit History of Present Illness Primary Care Provider: Clarissa Fuentes Allergies Allergy/AdvReac Type Severity Reaction Status Date / Time house dust AdvReac Mild sinusitis, Verified 04/27/23 11:49 sob pollen extracts AdvReac Mild sinusitis, Verified 04/27/23 11:49 sob Home Medications Medication Instructions Recorded Confirmed Type atorvastatin 10 mg tablet 10 mg PO HS 06/18/20 04/27/23 History calcium carb 333 mg-vit D3 133 2 tab PO DAILY 06/18/20 04/27/23 History unit-mag ox 133 mg-zinc oxide 5 mg tab (Bandar Mag Zinc Plus D3) cyanocobalamin (vitamin B-12) 1,000 mcg PO DAILY 06/18/20 04/27/23 History 1,000 mcg tablet (Vitamin B-12) fluticasone propionate 110 2 puff inhalation BID PRN 06/18/20 12/31/21 History mcg/actuation HFA aerosol inhaler Shortness Of Breath Or Wheezing (Flovent HFA) metformin 500 mg tablet,extended 1,000 mg PO QPM 06/18/20 04/27/23 History release 24 hr omeprazole 20 mg capsule,delayed 20 mg PO Q2D 06/18/20 04/27/23 History release lisinopril 5 mg tablet 5 mg PO QPM 11/14/21 04/27/23 History loratadine 10 mg tablet (Claritin) 10 mg PO DAILY PRN ALLERGY RELIEF 11/14/21 04/27/23 History alfuzosin 10 mg tablet,extended 10 mg PO DAILY #90 tabs 05/06/23 05/06/23 Rx release 24 hr finasteride 5 mg tablet 5 mg PO DAILY #30 tabs 06/22/23 06/22/23 Rx sulfamethoxazole 800 1 tab PO BID 10 days #20 tabs 06/28/23 Rx mg-trimethoprim 160 mg tablet (Bactrim DS) Past Med/Surg History Problem List (Updated 08/18/23 @ 22:16 by Tamara Rodriguez MD) Stroke-like symptoms (Acute) Benign localized prostatic hyperplasia with lower urinary tract symptoms (LUTS) Renal cell carcinoma Encounter for pre-operative examination Medical History Arthritis BPH (benign prostatic hyperplasia) Diabetes mellitus, type 2 GERD (gastroesophageal reflux disease) History of kidney cancer SURGERY ONLY Hyperlipidemia Hypertension Ocular migraine Seasonal asthma HAS NOT USED INHALER RECENLTY Surgical History H/O foot surgery RT X 2 H/O partial nephrectomy LAP H/O wisdom tooth extraction History of hernia surgery X 3 History of right cataract extraction Family History Other No family history of adverse response to anesthesia Social History Smoking Status: Former smoker Second Hand Exposure: No; Do You Dip or Chew Tobacco: No; Tobacco Cessation Education Requested by Patient: No Hx Alcohol Use: Yes Alcohol type: other Hx Substance Use: No Preferred Language: Peruvian Communication Ability: Effective Stock Manager Required: No Beliefs That Will Affect Care: None Current Living Situation: Alone Other Information That Helps Us Care for You: No Feels Safe at Home: Yes Safety Concerns: Feels Safe At This Time Assistive Devices: None Results & Data Results & Data Vital Signs (Past 12 Hours) Vital Signs Temp Pulse Pulse Resp BP BP Pulse Ox 08/18/23 19:07 80 152/86 H 99 08/18/23 17:51 77 18 98 08/18/23 17:43 79 21 154/83 H 97 08/18/23 17:12 91 H 22 97 08/18/23 16:53 79 08/18/23 16:52 80 17 157/86 H 99 08/18/23 16:39 36.5 C 83 19 147/82 H 97 O2 Del Method 08/18/23 19:07 Room Air 08/18/23 17:51 Room Air 08/18/23 17:43 Room Air 08/18/23 17:12 Room Air 08/18/23 16:53 08/18/23 16:52 08/18/23 16:39 Room Air Laboratory Results 08/18/23 16:58 08/18/23 16:[address] 08/18/23 17:14 FINDINGS: CT head: There is no acute intracranial hemorrhage or evidence of acute territorial infarction. No shift of the midline structures, mass effect, or extra-axial abnormalities are shown. Lungs and soft tissues are unremarkable. CTA Neck: The left common carotid artery shares common origin with the innominate artery. There is no significant atherosclerotic plaque in the aortic arch or the origins of the innominate, left common carotid, and left subclavian arteries. There is mild calcified atherosclerotic plaque at the bifurcation of the bilateral common carotid arteries without hemodynamically significant flow stenosis. There is no dissection present. The left vertebral artery is dominant. CTA Head: The anterior and posterior cerebral circulations are patent. No hemodynamically significant stenosis, aneurysm, dissection, or arteriovenous malformation is shown. IMPRESSION: 1. No acute intracranial hemorrhage, evidence of acute territorial infarction, or other acute intracranial disease process. 2. No occlusion, hemodynamically significant stenosis, or dissection in the major cervical arteries. 3. No occlusion, hemodynamically significant stenosis, aneurysm, dissection, or arteriovenous malformation in the major intracranial arteries. Assessment of stenosis of the internal carotid arteries is based on NASCET criteria. Head CTA 08/18/23 17:14 FINDINGS: CT head: There is no acute intracranial hemorrhage or evidence of acute territorial infarction. No shift of the midline structures, mass effect, or extra-axial abnormalities are shown. Lungs and soft tissues are unremarkable. CTA Neck: The left common carotid artery shares common origin with the innominate artery. There is no significant atherosclerotic plaque in the aortic arch or the origins of the innominate, left common carotid, and left subclavian arteries. There is mild calcified atherosclerotic plaque at the bifurcation of the bilateral common carotid arteries without hemodynamically significant flow stenosis. There is no dissection present. The left vertebral artery is dominant. CTA Head: The anterior and posterior cerebral circulations are patent. No hemodynamically significant stenosis, aneurysm, dissection, or arteriovenous malformation is shown. IMPRESSION: 1. No acute intracranial hemorrhage, evidence of acute territorial infarction, or other acute intracranial disease process. 2. No occlusion, hemodynamically significant stenosis, or dissection in the major cervical arteries. 3. No occlusion, hemodynamically significant stenosis, aneurysm, dissection, or arteriovenous malformation in the major intracranial arteries. Assessment of stenosis of the internal carotid arteries is based on NASCET criteria. Neck CTA 08/18/23 17:14 FINDINGS: CT head: There is no acute intracranial hemorrhage or evidence of acute territorial infarction. No shift of the midline structures, mass effect, or extra-axial abnormalities are shown. Lungs and soft tissues are unremarkable. CTA Neck: The left common carotid artery shares common origin with the innominate artery. There is no significant atherosclerotic plaque in the aortic arch or the origins of the innominate, left common carotid, and left subclavian arteries. There is mild calcified atherosclerotic plaque at the bifurcation of the bilateral common carotid arteries without hemodynamically significant flow stenosis. There is no dissection present. The left vertebral artery is dominant. CTA Head: The anterior and posterior cerebral circulations are patent. No hemodynamically significant stenosis, aneurysm, dissection, or arteriovenous malformation is shown. IMPRESSION: 1. No acute intracranial hemorrhage, evidence of acute territorial infarction, or other acute intracranial disease process. 2. No occlusion, hemodynamically significant stenosis, or dissection in the major cervical arteries. 3. No occlusion, hemodynamically significant stenosis, aneurysm, dissection, or arteriovenous malformation in the major intracranial arteries. Assessment of stenosis of the internal carotid arteries is based on NASCET criteria. Brain MRI 08/18/23 20:12 FINDINGS: No abnormal restricted diffusion is identified. Foci of T2 and FLAIR hyperintensity are noted in the paraventricular areas consistent with chronic small vessel ischemic disease. The ventricular system is normal in appearance. No mass is seen. There is no mass effect or midline shift. There is no evidence of acute intraparenchymal hemorrhage. No extra axial fluid collections are seen. The corpus callosum, pituitary gland, and cerebellar tonsils appear grossly unremarkable. Flow voids of the major intracranial arterial vessels are identified. The imaged portions of the paranasal sinuses, mastoid air cells, and orbits are unremarkable. IMPRESSION: No acute abnormality and in particular no evidence of acute infarct. Supervising Physician Co-Signing Physician Notes Attending addendum: I have physically seen this patient, have supervised the medical residents activities, and agree with the H&P unless as otherwise noted. Assessment and Plan: Strokelike symptoms/hypertension- CT scan head, CTA head and neck all negative Order MRI brain without contrast Order complete echocardiogram Stroke without tPA order set Give aspirin 81 mg daily Order fasting lipid panel and hemoglobin A1c Consult PT/OT/speech therapy Permissive hypertension, holding lisinopril Diabetes mellitus- Holding metformin Placed on Accu-Cheks with NovoLog SSI Hyperlipidemia- Continue atorvastatin, but increase dosing from 10 to 40 mg daily for high-dose regimen Resident Activity Tracking Resident Involvement: Resident Care Provided Care Provided: Adult [facility]
[2023-08-18] MEDS: ASPIRIN CHEW 324 MG PO STA (20:46)
--- NOTE | 2023-08-18 21:22 | Magnetic Resonance Report ---
MR brain wo con CLINICAL HISTORY: stroke like symptoms TECHNIQUE: Multiplanar and multisequence MR images of the brain were obtained without intravenous con trast. Comparison: Comparison is made to CTA head and neck 08/18/2023 FINDINGS: No abnormal restricted diffusion is identified. Foci of T2 and FLAIR hyperintensity are noted in the paraventricular areas consistent with chronic small vessel ischemic disease. The ventricular system i s normal in appearance. No mass is seen. There is no mass effect or midline shift. There is no eviden ce of acute intraparenchymal hemorrhage. No extra axial fluid collections are seen. The corpus callos um, pituitary gland, and cerebellar tonsils appear grossly unremarkable. Flow voids of the major intracranial arterial vessels are identified. The imaged portions of the para nasal sinuses, mastoid air cells, and orbits are unremarkable. IMPRESSION: No acute abnormality and in particular no evidence of acute infarct. ACT 112: Negative or not required by law. Electronically signed by: Pierce Katz M.D. 08/18/2023 9:21 PM
[2023-08-18] MEDS ORDERED: LORATADINE 10 MG TAB PO PRN (21:39)
[2023-08-18] MEDS ORDERED: POLYETHYLENE (MIRALAX) 17 GM PACK PO PRN (21:39)
[2023-08-18] MEDS ORDERED: FLUTICASONE HFA 110MCG INHALER INH PRN (21:39)
[2023-08-18] MEDS ORDERED: ACETAMINOPHEN 325 MG TAB PO PRN (21:39)
[2023-08-18] MEDS: PANTOprazole 40 MG TAB PO SCH (22:40)
[2023-08-18] MEDS ORDERED: Nursing to Pharmacy Communication SCH (23:00)
[2023-08-18] MEDS: FINASTERIDE 5 MG TAB PO SCH (23:23)
[2023-08-18] MEDS: TAMSULOSIN HCL 0.4 MG CAP PO SCH (23:27)
[2023-08-18] MEDS: ATORVASTATIN 10 MG TAB PO SCH (23:30)
--- NOTE | 2023-08-19 05:53 | Billing Data ---
Date of Service August 19, 2023 Coding Level of Care Code 03719 INT INP/OBS CARE
[2023-08-19 07:00] LABS: Hematocrit (blood only) 43.3 % (42.0-52.0); Mean Corpuscular Hemoglobin 32.1 pg (25.0-34.0); Mean Corpuscular Hgb Conc 34.6 g/dL (32.0-36.0); Mean Corpuscular Volume 92.5 fL (80.0-100.0); Mean Platelet Volume 10.4 fL (9.4-12.4); Platelet Count 149 K/uL (130-400); RDW Coefficient of Variation 12.4 % (11.5-14.5); RDW Standard Deviation 41.8 fL (36.4-46.3); Red Blood Count 4.68 M/uL (4.70-6.10); White Blood Count 5.73 K/ul (4.8-10.8)
[2023-08-19 07:16] LABS: Albumin Globulin Ratio 1.6 (0.9-2); Albumin Level 4.1 gm/dl (3.4-5.0); BUN Creatinine Ratio 14.8 (10-20); Bilirubin,Total 1.2 mg/dl (0.2-1.0); Calcium 9.1 mg/dl (8.6-10.3); Est GFR (African American) 100.2 ml/min; Est GFR (Non-African American) 86.4 ml/min; Globulin 2.6 gm/dl (2.5-4.0); Potassium 3.6 mmol/L (3.5-5.1); Total Protein 6.7 gm/dl (6.0-8.3)
[2023-08-19 07:24] LABS: Estimated Average Glucose 137 mg/dl; Hemoglobin A1C 6.4 % (4.5-5.6)
[2023-08-19] MEDS: ASPIRIN 81 MG ECTAB PO SCH (07:43)
[2023-08-19 07:56] VITALS: RESP 18
[2023-08-19] MEDS ORDERED: FINASTERIDE 5 MG TAB PO SCH (09:00)
[2023-08-19] MEDS ORDERED: TAMSULOSIN HCL 0.4 MG CAP PO SCH (09:00)
--- NOTE | 2023-08-19 11:25 | Discharge Summary ---
Date of Service August 19, 2023 Principal Diagnosis Strokelike symptoms Discharge Exam General-alert and oriented x3, no fever, no chills HEENT-head atraumatic and normocephalic, pupils equal and reactive to light, extraocular muscles intact Neck-no lymphadenopathy or thyromegaly, trachea midline Chest-clear to auscultation. No rales, wheezing or rhonchi Cardiac-regular rate and rhythm, normal S1 and S2 Abdomen-normal bowel sounds, no hepatosplenomegaly Extremities-no cyanosis, clubbing, or edema Neuro-cranial nerves II through XII intact, motor and sensory function within normal limits, strength symmetrical, no focal deficits Psych-normal affect, normal mood Discharge Data Allergies Allergy/AdvReac Type Severity Reaction Status Date / Time house dust AdvReac Mild sinusitis, Verified 04/27/23 11:49 sob pollen extracts AdvReac Mild sinusitis, Verified 04/27/23 11:49 sob Consultations 08/18/23 19:34 ED Decision to Admit Stat Ordered Studies 08/18/23 17:14 CT angio head w con Stat CT angio neck with con Stat CT head/brain wo con Stat 08/18/23 20:12 MRI Brain [MR brain wo con] Stat Hospital Course (1) Stroke-like symptoms: Vertigo has resolved. Brain MRI scan negative for acute CVA. Head and neck CTA negative for any critical stenosis. He will be discharged home today, August 18 (2) Benign localized prostatic hyperplasia with lower urinary tract symptoms (LUTS): No acute urinary retention. Continue home alfuzosin 10 mg XR. (3) Diabetes mellitus, type 2: Stable. ADA diet. Sliding scale coverage if needed. Continue home metformin (4) Hyperlipidemia: Stable. Continue home statin (5) Hypertension: Stable. Lisinopril held while admitted but will be restarted at discharge Plan Home todayAugust 18 Total Time Total Time Spent Total Time Spent (In Minutes): 45 minutes Discharge Plan Discharge Items Patient Disposition: Home - Self-Care Reason For Visit: STROKE LIKE SYMPTOMS Discharge Diagnosis: Strokelike symptoms without acute CVA Activity: Resume your previous activity Non-emergency contact: Primary Care Provider Call non-emergency contact if: your symptoms worsen Follow-up/Referrals: Clarissa Fuentes [Primary Care Provider] - Diet: Carb Consistent or DM2 Addtl Attending Provider Instructions: All medications remain the same Pending Studies at Discharge: No Stand-Alone Forms: My [facility], Smoking Cessation Medications and DC Order Prescriptions: Continued sulfamethoxazole-trimethoprim [Bactrim DS] 800-160 mg tablet 1 tab PO BID 10 Days Qty: 20 0RF alfuzosin 10 mg tablet extended release 24 hr 10 mg PO DAILY Qty: 90 1RF Rx Instructions: administer after the same meal each day finasteride 5 mg tablet 5 mg PO DAILY Qty: 30 2RF atorvastatin 10 mg tablet 10 mg PO HS cyanocobalamin (vitamin B-12) [Vitamin B-12] 1,000 mcg Tablet 1,000 mcg PO DAILY omeprazole 20 mg capsule,delayed release(DR/EC) 20 mg PO Q2D metformin 500 mg tablet extended release 24 hr 1,000 mg PO QPM fluticasone propionate [Flovent HFA] 110 mcg/actuation HFA aerosol inhaler 2 puff INHALATION BID PRN (Reason: Shortness Of Breath Or Wheezing) Bandar Mag Zinc Plus D3 333 mg-133 unit -133 mg-5 mg Tablet 2 tab PO DAILY lisinopril 5 mg Tablet 5 mg PO QPM loratadine [Claritin] 10 mg Tablet 10 mg PO DAILY PRN (Reason: ALLERGY RELIEF) Discharge Orders: Discharge Order (Routine); Ordered 08/19/23 Ordered By: Biju Bloom/Other Patient Handouts: Managing Type 2 Diabetes Admission Data Admit Date/Time: 08/18/23 20:36 Attending Provider: Biju Rodriguez Admit Provider: Lety Larkin Primary Care Provider: Clarissa Fuentes Other Providers: Erickson Owen Coding Level of Care Code 22735 INP/OBS DISCH >30 MIN Diagnoses Stroke-like symptoms R29.90 Benign localized prostatic hyperplasia with lower urinary tract symptoms (LUTS) N40.1 Diabetes mellitus, type 2 E11.9 Hyperlipidemia E78.5 Hypertension I10
[2023-08-19 11:29] VITALS: BP 126/78; PULSE 69; TEMP 97.7; O2SAT 97
--- NOTE | 2023-08-19 13:12 | XCELERA ---
[id number]
--- NOTE | 2023-08-19 17:37 | Electrocardiogram Report ---
Test Reason : Blood Pressure : / mmHG Vent. Rate : 068 BPM Atrial Rate : 068 BPM P-R Int : 184 ms QRS Dur : 106 ms QT Int : 392 ms P-R-T Axes : 063 033 049 degrees QTc Int : 416 ms Normal sinus rhythm Normal ECG When compared with ECG of 18-AUG-2023 16:48, (unconfirmed) No significant change was found Confirmed by Shiv Orozco ([id number]) on 08/19/2023 5:37:07 PM Referred By: REFERRED SELF Confirmed By:Rc Orozco
--- NOTE | 2023-08-19 17:39 | Electrocardiogram Report ---
Test Reason : Blood Pressure : / mmHG Vent. Rate : 078 BPM Atrial Rate : 078 BPM P-R Int : 164 ms QRS Dur : 108 ms QT Int : 356 ms P-R-T Axes : 034 040 044 degrees QTc Int : 405 ms Normal sinus rhythm Normal ECG When compared with ECG of 25-APR-2023 22:56, No significant change was found Confirmed by Shiv Orozco ([id number]) on 08/19/2023 5:39:03 PM Referred By: REFERRED SELF Confirmed By:Rc Orozco
[2023-08-19] MEDS ORDERED: ATORVASTATIN 10 MG TAB PO SCH (21:00)
[2023-08-19] MEDS ORDERED: metFORMIN HCL ER 500 MG TABCR PO SCH (21:00)
[2023-08-19] MEDS ORDERED: ATORVASTATIN 40 MG TAB PO SCH (21:00)
--- OUTSIDE RECORDS SUMMARY | 2023-08-20 05:31 | External Medical Summary | Summary of Care ---
Author Name Unknown Organization [facility] Address [address] [place] [address] Phone [phone] Care Team Providers Care Associate Professor Of Archaeology Name Role Phone Clarissa Fuentes Primary Care Provider [phone] Reason for Visit * Reason Onset Date Comments Advice 08/18/2023 Episode of blurr y vision left Encounter Details Date Type Department Care Team (Late st Contact Info) Description 08/18/2023 Telephone Access Center, [place] [address] [facility] *DO NOT REMOVE THIS DEPARTMENT* [place], [place] [id number] Services, Scheduling [address] [place] [address] Advice (Episode of blurry vision left ) Allergies Active Allergy Reactions Criticality Noted Date Comments Pollen 12/10/2022 Other Reaction(s): Nasal congestion documented as of this encounter (statuses as of 08/18/2023) Medications Medication Sig Dispensed Refills Start Date End Date Status PRILOSEC 20 MG OR CPDRIndications:Esopha geal reflux one tab by mouth daily at bedtime 30 5 10/30/2002 Active Atorvastatin Calcium 10 MG Oral Tablet (Lipitor) Take 1 Tablet by mouth in the morning. Active Lisinopril 5 MG Oral Tablet (Prinivil) 1 Tablet. 10/27/2021 Active Loratadine 10 MG Oral Capsule Active metFORMIN HCl ER 500 MG Oral Tablet Extended Release 24 Hour (Glucophage XR) Take 2 Tablets by mouth in the morning. Active Tamsulosin HCl 0.4 MG Oral Capsule (Flomax) Start: 10/19/22 9:29:00 EDT, See Instructions, Disp# 90 cap, Refills: 2, take 1 capsule by mouth once daily, Pharmacy: [facility] #[id number] 10/19/2022 Active Calcium Magnesium Zinc 333-133-5 MG Oral Tablet Start: 04/30/22 10:31:00 EST, magnesium, zinc, calcium 04/30/2022 Active [facility] Vitamin B12 1000 MCG Oral Tablet Extended Release (Cyanocobalamin ER) Take by mouth. A ctive Fluticasone Propionate 50 MCG/ACT Nasal Suspension instill 1 spray into each nostril once daily Active traMADol HCl 50 MG Oral Tablet (Ultram) 1 Tablet. 08/26/2022 Acti ve tiZANidine HCl 4 MG Oral Tablet Start: 04/30/22 10:34:00 EST 04/30/2022 Active OneTouch Verio In Vitro Strip use 1 TEST STRIP to TEST BLOOD SUGAR UP TO THREE TIMES A DAY 10/18/2022 Active Fluorouracil 5 % External Cream (Efudex) Start: 02/15/23 13:24:00 EST, 1 appl, topical, bid, Disp# 40 g, Refills: 1, apply to scalp for 2 weeks, Pharmacy: [facility] #[id number] 02/15/2023 Active documented as of this encounter (statuses as of 08/18/2023) Active Problems Problem Noted Date Diagnosed Date Posterior vitreous detachment of left eye 2022 Posterior vitreous detachment of right eye 12/01 Other allergic rhinitis 03/15/2001 Overview: ICD-10 update of inactive term Esophageal reflux 08/06/2000 documented as of this encounter (statuses as of 08/18/2023) Social History Tobacco Use Types Packs/Day Years Used Date Smoking Tobacco: Former Cigarettes Q uit: 03/08/1997 Alcohol Use Standard Drinks/Week Comments Yes 0 (1 standard drink = 0.6 oz pur e alcohol) occ Hunger Vital Sign Answer Date Recorded Within the past 12 months, y ou worried that your food would run out before you got the money to buy more. Never true 12/02/19 23 Within the past 12 months, t he food you bought just didn't last and you didn't have money to get more. Never true 12/01/2022 Sex and Gender Information Value Date Recorded Sex Assigned at Not on file Gender Identity Not on file Sexual Orientation Not on file Job Start Date Occupation Industry Not on file Not on file Not on file documented as of this encounter Miscellaneous Notes * Telephone Encounter - Ken Martin OSA - 08/18/2023 1:33 PM EDT Images from the original note were not included. Who is calling? Usama Ailyn - Patient Best way to reach patient or person calling, if call back needed by nurse or physician: [phone] Patient complaint/concern: episode of blurry vision left eye. Lasted for approx 1 min. Location: Left eye How long has it been going on: Today lasted 1 minute Timing: constant for 1 minute Associated symptoms: blurry vision left eye If having pain, have patient rate pain on a scale from 0 to 10 (10 being the worst pain ever) No pain Characterization- No Pain / Scale- 0/10 [facility] ONLY: NOTIFY PATIENT: PLEASE ALLOW US UP TO 48 HOURS FOR A RESPONSE *Person filling out this form: Once form completed, please route to p [phone] (triage nurse pool) after 4:00 pm route to Resident Pool P [id number]. Please let patient know you have sent symptoms for triageand someone will reach out to patient with further instruction. Physician or nurse will triage & reply with instruction to appropriate pools as listed below. Thank you! *Physicians triaging patient, please reply to: -If only instructions needed- NO appointment scheduling needed, please route to p [phone] (triage nurse pool). -If instructions AND appointment needed, please route to p [phone] (triage nurse pool) and p [phone] (manager of maintenance pool). [place] ONLY: Route all messages to P [phone] [facility] Ophthalmology triage pool NOTIFY PATIENT: PLEASE ALLOW US UP TO 48 HOURS FOR A RESPONSE [place]: NOTIFY PATIENT: PLEASE ALLOW US UP TO 48 HOURS FOR A RESPONSE documented in this encounter Plan of Treatment Health Maintenance Due Date Last Done Comments Depression Screening 1962 Hepatitis C Screening 02/24/1970 Colonoscopy 02/24/1997 Fecal Occult Blood Test 02/24/1997 Sigmoidoscopy 02/24/1997 Zoster Vaccines (1 of 2) 02/24/2002 Lipid Panel 08/06/2005 08/06/2000 Pneumococcal Vaccine: 65+ Years (3 of 3 - PPSV23 or PCV20) 03/24/2021 07/01/2017, 03/24/2016 COVID-19 Vaccine (4 - season) 2022 02/14/2021, 06/21/2020, 05/31/2020 Influenza Vaccine (FLU shot) (Season Ended) 2023 01/25/2022, 12/29/2020, 11/08/2016, Additional history exists Cologuard 03/18/2025 03/18/2022, 03/12/2022 Colorectal Cancer Screening 03/18/2025 DTaP,Tdap,and Td Vaccines (2 - Td or Tdap) 06/06/2025 06/07/2015 AAA Screening Completed 08/06/2015 GARDASIL-HPV IMMUNIZATION SERIES Aged Out No longer eligible based on patient's age to complete this topic Hepatitis B Aged Out No longer eligi ble based on patient's age to complete this topic MENINGOCOCCAL (MENACTRA/MENVEO) Aged Out No longer eligible based on patient's age to complete this topic documented as of this encounter Medical Devices Not on filedocumented as of this encounter Advance Directives * Full Code (Latest Code Status on File) Date Activated Date Inactivated Comments 02/10/2023 10:09 AM 02/10/2023 3:47 PM This order reflects the patients wishes and were consensually agreed upon. Question Answer Comments Discussion of Advance Direct crystal occurred with: Not Discussed due to patient's condition * Full Code Date Activated Date Inactivated Comments 12/02/2022 11:34 AM 12/02/2022 6:30 PM This order reflects the patients wishes and were consensually agreed upon. Question Answer Comments Discussion of Advance Direct crystal occurred with: Not Discussed due to patient's condition Care Teams Associate Professor Of Archaeology Relationship Specialty Start Date End Date Clarissa Fuentes CRNP [address] [facility] [place] [address] PCP - General Nurse Practitioner 12/02/22 documented as of this encounter
== END 2023-08-19 12:45 | disposition home or self-care (01) ==
LOC: ED 16:34 → 2S 16:34 → SUATTDRO 20:36 → 2S 21:04